=== PATIENT | female | born 1965 | race Caucasian/White ===

== ENCOUNTER 2017-09-21 12:09 | Emergency (ER) | payer OTHER ==
[2017-09-21 12:09] VITALS: BMI 23.8
[2017-09-21 12:16] VITALS: TEMP 97.9
--- NOTE | 2017-09-21 12:57 | ED PDOC ---
Arrival/HPI <Nicolás Correia - Last Filed: 09/21/17 15:41> - General Historian: Patient - History of Present Illness Time/Duration: 24 hours Symptom Onset: Sudden Symptom Course: Unchanged Quality: Pressure <Troy Zambrano - Last Filed: 09/21/17 19:40> - General Chief Complaint: Chest Pain Time Seen by Provider: 09/21/17 12:17 - History of Present Illness Narrative History of Present Illness (Text): Patient is a 51 year old female with a past medical history of hyperlipidemia who presents to the emergency room for evaluation and treatment of chest pressure which began yesterday evening with no specific provoking event. Pain originates and is localized to the sternal region. No associated SOB, diaphoresis, and palpitations. Admits to associated headache. Also admits to experiencing dizziness and left sided facial numbness during breakfast this morning. Both symptoms resolved within minutes of onset without any acute intervention. Denies fever, chills, SOB, abdominal pain, nausea, vomiting, diarrhea, constipation, and urinary symptoms. (Troy Zambrano) Past Medical History - Provider Review Nursing Documentation Reviewed: Yes - Travel History Have you recently traveled outside [place] w/in the past 3 mons?: No - Infectious Disease Hx of Infectious Diseases: None - Tetanus Immunization Tetanus Immunization: Unknown - Reproductive Menopause: Yes - Past Medical History Past Medical History: No Previous - Cardiac Hx Hypertension: Yes - Pulmonary Hx Respiratory Disorders: No - Neurological Hx Neurological Disorder: No - HEENT Hx HEENT Disorder: No - Renal Hx Renal Disorder: No - Endocrine/Metabolic Hx Endocrine Disorders: No - Hematological/Oncological Hx Blood Disorders: No - Musculoskeletal/Rheumatological Hx Musculoskeletal Disorders: No - Gastrointestinal Hx Hemorrhoids: Yes - Genitourinary/Gynecological Hx Genitourinary Disorders: No - Psychiatric Hx Depression: No Hx Emotional Abuse: No Hx Physical Abuse: No Hx Substance Use: No - Surgical History Hx Section: Yes Hx Hysterectomy: Yes - Anesthesia Hx Anesthesia: Yes Hx Anesthesia Reactions: No Hx Malignant Hyperthermia: No - Suicidal Assessment Feels Threatened In Home Enviroment: No <Troy Zambrano - Last Filed: 09/21/17 19:40> Family/Social History - Physician Review Nursing Documentation Reviewed: Yes Family/Social History: Unknown Family HX Smoking Status: Never Smoked Hx Alcohol Use: No Hx Substance Use: No Hx Substance Use Treatment: No <Troy Zambrano - Last Filed: 09/21/17 19:40> Allergies/Home Meds <Nicolás Correia - Last Filed: 09/21/17 15:41> <Troy Zambrano - Last Filed: 09/21/17 19:40> Allergies/Adverse Reactions: Allergies No Known Allergies Allergy (Verified 09/21/17 12:16) Review of Systems - Review of Systems Constitutional: Normal Eyes: Normal ENT: Normal Respiratory: Normal Cardiovascular: Chest Pain Gastrointestinal: Normal Genitourinary Female: Normal Musculoskeletal: Normal Skin: Normal Neurological: Dizziness Endocrine: Normal Hemo/Lymphatic: Normal Psychiatric: Normal <Troy Zambrano - Last Filed: 09/21/17 19:40> Physical Exam Vital Signs Reviewed: Yes <Nicolás Correia - Last Filed: 09/21/17 15:41> Temperature: Afebrile Blood Pressure: Normal Pulse: Regular Respiratory Rate: Normal Appearance: Positive for: Well-Appearing, Non-Toxic, Comfortable Pain Distress: None Mental Status: Positive for: Alert and Oriented X 3 - Systems Exam Head: Present: Atraumatic, Normocephalic Pupils: Present: PERRL Extroacular Muscles: Present: EOMI Conjunctiva: Present: Normal Mouth: Present: Moist Mucous Membranes Neck: Present: Normal Range of Motion Respiratory/Chest: Present: Clear to Auscultation, Good Air Exchange. No: Respiratory Distress, Accessory Muscle Use Cardiovascular: Present: Regular Rate and Rhythm, Normal S1, S2, Other (pain reproducible on palpation in the sternal region ). No: Murmurs Abdomen: No: Tenderness, Distention, Peritoneal Signs Back: Present: Normal Inspection Upper Extremity: Present: Normal Inspection. No: Cyanosis, Edema Lower Extremity: Present: Normal Inspection. No: Edema Neurological: Present: GCS=15, CN II-XII Intact, Speech Normal Skin: Present: Warm, Dry, Normal Color. No: Rashes Psychiatric: Present: Alert, Oriented x 3, Normal Insight, Normal Concentration <Troy Zambrano - Last Filed: 09/21/17 19:40> Vital Signs Temp Pulse Pulse Resp BP BP Pulse Ox 09/21/17 18:09 70 16 114/58 L 99 09/21/17 14:30 71 16 108/66 99 09/21/17 12:26 80 119/80 09/21/17 12:14 97.9 F 80 18 119/81 99 Medical Decision Making - RAD Interpretation Marketing Director: Radiologist <Nicolás Correia - Last Filed: 09/21/17 15:41> - EKG Interpretation Interpreted by ED Physician: Yes Type: 12 lead EKG <Troy Zambrano - Last Filed: 09/21/17 19:40> ED Course and Treatment: 09/21/17 In agreement with resident note, which includes further HPI details. Patient was seen and evaluated with resident, came up with plan and treatment together. (Nicolás Correia) Assessment and Plan: Patient is a 51 year old female with a past medical history of hyperlipidemia who presents to the emergency room for evaluation and treatment of chest pressure . Chest Pressure - EKG - CBC, CMP, Mag, Phos - Troponin - Chest X-Ray Dizziness, Facial Numbness - CT of head no contrast- no acute findings - dizziness significantly improved s/p mecliizine 09/21/17 18:16 - abdominal ultrasound- The liver is echogenic. This can be seen in the setting of fatty infiltration, hepatitis, cirrhosis, as well as other possibilities, please 09/21/17 19:27 - second troponin negative - ok for discharge to home (Troy Zambrano) - Lab Interpretations Lab Results: 09/21/17 13:00 09/21/17 13:00 Lab Results 09/21/17 17:52: Troponin I < 0.01 09/21/17 13:00: Sodium 140, Potassium 4.3, Chloride 105, Carbon Dioxide 26, Anion Gap 14, BUN 13, Creatinine 0.7, Est GFR ( Amer) > 60, Est GFR (Non- Af Amer) > 60, Random Glucose 103, Calcium 9.0, Phosphorus 3.3, Magnesium 1.9, Total Bilirubin 0.7, AST 115 H, ALT 120 H, Alkaline Phosphatase 223 H, Troponin I < 0.01, Total Protein 7.7, Albumin 4.2, Globulin 3.5, Albumin/Globulin Ratio 1.2, Lipase 86 09/21/17 13:00: WBC 7.2, RBC 4.43, Hgb 13.1, Hct 38.0, MCV 85.8, MCH 29.6, MCHC 34.5, RDW 12.8, Plt Count 283, MPV 9.3, Gran % 62.4, Lymph % (Auto) 31.6, Beaver % (Auto) 3.8, Eos % (Auto) 2.1, Baso % (Auto) 0.1, Gran # 4.46, Lymph # (Auto) 2.3, Beaver # (Auto) 0.3, Eos # (Auto) 0.2, Baso # (Auto) 0.01 - RAD Interpretation Narrative RAD Interpretations (Text): PROCEDURE: CT HEAD WITHOUT CONTRAST. HISTORY: Headache, dizziness, left facial numbness COMPARISON: None available. TECHNIQUE: Axial computed tomography images were obtained through the head/brain without intravenous contrast. Radiation dose: Total exam DLP = 715.53 mGy-cm. This CT exam was performed using one or more of the following dose reduction techniques: Automated exposure control, adjustment of the mA and/or kV according to patient size, and/or use of iterative reconstruction technique. FINDINGS: HEMORRHAGE: No intracranial hemorrhage. BRAIN: No mass effect or edema. No atrophy or chronic microvascular ischemic changes. VENTRICLES: Unremarkable. No hydrocephalus. CALVARIUM: Unremarkable. PARANASAL SINUSES: Mild mucoperiosteal inflammatory changes seen within the sphenoid sinus left chamber greater than right. Minimal mucosal thickening within the ethmoid air complex. MASTOID AIR CELLS: Unremarkable as visualized. No inflammatory changes. OTHER FINDINGS: None. IMPRESSION: No acute intracranial hemorrhage. Minor mucosal thickening seen within the sphenoid and ethmoid air complexes. ABDOMEN COMPLETE Exam Date: 09/21/17 This imaging exam was performed at [facility] EXAM: US Abdomen Complete CLINICAL HISTORY: 51 years old, female; Abnormal findings; Abnormal lab test; Elevated liver enzymes; Additional info: Elevated lfts, chest pressure TECHNIQUE: Real-time ultrasound of the abdomen (complete) with image documentation. COMPARISON: No relevant prior studies available. FINDINGS: Liver: The liver is echogenic. This can be seen in the setting of fatty infiltration, hepatitis, cirrhosis, as well as other possibilities, please correlate clinically. Gallbladder: The patient is status post cholecystectomy. Common bile duct: The common bile duct measures 3 mm. Pancreas: The pancreas is not adequately evaluated due to obscuring bowel gas. Kidneys: Right kidney 10.0 cm. Left kidney 9.8 cm. No stones. No hydronephrosis. Spleen: Unremarkable. No splenomegaly. IMPRESSION: The liver is echogenic. This can be seen in the setting of fatty infiltration, hepatitis, cirrhosis, as well as other possibilities, please correlate clinically. 09/21/17 18:11 (Troy Zambrano) Radiology Orders: 09/21/17 12:28 CHEST PORTABLE [RAD] Stat 09/21/17 12:49 HEAD W/O CONTRAST [CT] Stat 09/21/17 15:00 ABDOMEN COMPLETE [US] Stat - EKG Interpretation EKG Interpretation (Text): EKG NSR HR 80bpm, QTc 424ms (Troy Zambrano) - Medication Orders Current Medication Orders: Discontinued Medications Meclizine HCl (Antivert) 25 mg PO STAT STA Stop: 09/21/17 14:23 Last Admin: 09/21/17 14:41 Dose: 25 mg - PA / TRIAL EXAMINER / Resident Statement MD/DO has reviewed & agrees with the documentation as recorded. MD/DO has examined the patient and agrees with the treatment plan. - Scribe Statement The provider has reviewed the documentation as recorded by the Scribe <Nicolás Correia - Last Filed: 09/21/17 15:41> <Troy Zambrano - Last Filed: 09/21/17 19:40> - Scribe Statement Lilian Jo Provider Scribe Attestation: All medical record entries made by the Scribe were at my direction and personally dictated by me. I have reviewed the chart and agree that the record accurately reflects my personal performance of the history, physical exam, medical decision making, and the department course for this patient. I have also personally directed, reviewed, and agree with the discharge instructions and disposition. (Nicolás Correia) Disposition/Present on Arrival <Nicolás Correia - Last Filed: 09/21/17 15:41> - Present on Arrival Any Indicators Present on Arrival: No History of DVT/PE: No History of Uncontrolled Diabetes: No Urinary Catheter: No History of Decub. Ulcer: No History Surgical Site Infection Following: None - Disposition Have Diagnosis and Disposition been Completed?: Yes Disposition Time: 19:27 Patient Plan: Discharge <Troy Zambrano - Last Filed: 09/21/17 19:40> - Disposition Diagnosis: Atypical chest pain Disposition: HOME/ ROUTINE Condition: GOOD Discharge Instructions (ExitCare): Chest Pain (ED) Additional Instructions: HILARY COREY, thank you for letting us take care of you today. Your provider was Nciolás Correia DO and you were treated for PRESSURE IN CHEST. The emergency medical care you received today was directed at your acute symptoms. If you were prescribed any medication, please fill it and take as directed. It may take several days for your symptoms to resolve. Return to the Emergency Department if your symptoms worsen, do not improve, or if you have any other problems. Please contact your doctor or call one of the physicians/clinics you have been referred to that are listed on the Patient Visit Information form that is included in your discharge packet. Bring any paperwork you were given at discharge with you along with any medications you are taking to your follow up visit. Our treatment cannot replace ongoing medical care by a primary care provider outside of the emergency department. Thank you for allowing the [facility] team to be part of your care today. If you had an X-Ray or CT scan: A Radiologist will review the ED reading if any change in treatment is needed we will contact you. If you had a blood, urine, or wound culture: It will take several days for the results, if any change in treatment is needed we will contact you. If you had an STI test: It will take 48 hours for the results. Please call after 1 week if you have not heard back. Prescriptions: Meclizine [Antivert] 12.5 mg PO TID PRN 5 Days tab PRN Reason: Dizziness Forms: [employer] (Japanese)
[2017-09-21 13:20] LABS: BASO # 0.01 K/mm3 (0.0-2.0); BASO % 0.1 % (0.0-3.0); EOS # 0.2 (0.0-0.7); EOS % 2.1 % (1.5-5.0); GRAN # 4.46 (1.4-6.5); GRAN % 62.4 % (50.0-68.0); HEMOGLOBIN 13.1 g/dL (12.0-16.0); LYMPH # 2.3 (1.2-3.4); LYMPH % 31.6 % (22.0-35.0); MEAN CELL VOLUME 85.8 fl (80.0-105.0); MEAN CORPUSCULAR HEMOGLOBIN 29.6 pg (25.0-35.0); MEAN CORPUSCULAR HGB CONC 34.5 g/dl (31.0-37.0); MEAN PLATELET VOLUME 9.3 fl (7.0-11.0); MONO # 0.3 (0.1-0.6); MONO % 3.8 % (1.0-6.0); RBC 4.43 10^6/uL (3.5-6.1); RED CELL DISTRIBUTION WIDTH 12.8 % (11.5-14.5); WHITE BLOOD COUNT 7.2 10^3/ul (4.5-11.0)
[2017-09-21 13:29] LABS: ALB/GLOB RATIO 1.2 (1.1-1.8); ALBUMIN 4.2 g/dL (3.0-4.8); ALT/SGPT 120 U/L (7-56); AST/SGOT 115 U/L (14-36); BLOOD UREA NITROGEN 13 mg/dL (7-21); GFR AFRICAN-AMERICAN > 60; GFR NON-AFRICAN AMERICAN > 60; LIPASE 86 U/L (23-300)
[2017-09-21 13:40] LABS: TROPONIN I < 0.01 ng/mL
--- NOTE | 2017-09-21 14:00 | CT ---
PROCEDURE: CT HEAD WITHOUT CONTRAST. HISTORY: Headache, dizziness, left facial numbness COMPARISON: None available. TECHNIQUE: Axial computed tomography images were obtained through the head/brain without intravenous contrast. Radiation dose: Total exam DLP = 715.53 mGy-cm. This CT exam was performed using one or more of the following dose reduction techniques: Automated exposure control, adjustment of the mA and/or kV according to patient size, and/or use of iterative reconstruction technique. FINDINGS: HEMORRHAGE: No intracranial hemorrhage. BRAIN: No mass effect or edema. No atrophy or chronic microvascular ischemic changes. VENTRICLES: Unremarkable. No hydrocephalus. CALVARIUM: Unremarkable. PARANASAL SINUSES: Mild mucoperiosteal inflammatory changes seen within the sphenoid sinus left chamber greater than right. Minimal mucosal thickening within the ethmoid air complex. MASTOID AIR CELLS: Unremarkable as visualized. No inflammatory changes. OTHER FINDINGS: None. IMPRESSION: No acute intracranial hemorrhage. Minor mucosal thickening seen within the sphenoid and ethmoid air complexes.
--- NOTE | 2017-09-21 15:50 | RAD ---
HISTORY: chest pressure COMPARISON: Comparison chest 11/06/2012 FINDINGS: LUNGS: No active pulmonary disease. PLEURA: No significant pleural effusion identified, no pneumothorax apparent. CARDIOVASCULAR: Normal. OSSEOUS STRUCTURES: No significant abnormalities. VISUALIZED UPPER ABDOMEN: Normal. OTHER FINDINGS: None. IMPRESSION: No active disease.
--- NOTE | 2017-09-21 17:36 | US ---
EXAM: US Abdomen Complete CLINICAL HISTORY: 51 years old, female; Abnormal findings; Abnormal lab test; Elevated liver enzymes; Additional info: Elevated lfts, chest pressure TECHNIQUE: Real-time ultrasound of the abdomen (complete) with image documentation. COMPARISON: No relevant prior studies available. FINDINGS: Liver: The liver is echogenic. This can be seen in the setting of fatty infiltration, hepatitis, cirrhosis, as well as other possibilities, please correlate clinically. Gallbladder: The patient is status post cholecystectomy. Common bile duct: The common bile duct measures 3 mm. Pancreas: The pancreas is not adequately evaluated due to obscuring bowel gas. Kidneys: Right kidney 10.0 cm. Left kidney 9.8 cm. No stones. No hydronephrosis. Spleen: Unremarkable. No splenomegaly. IMPRESSION: The liver is echogenic. This can be seen in the setting of fatty infiltration, hepatitis, cirrhosis, as well as other possibilities, please correlate clinically.
[2017-09-21 18:09] VITALS: PULSE 70; RESP 16
[2017-09-21 19:42] VITALS: BP 114/71; O2SAT 98
--- NOTE | 2017-09-22 08:07 | CARD ---
APPROVED REPORT EKG Measurement Heart [id number] [place] [id number] <Conclusion> Normal sinus rhythm Normal ECG
== END 2017-09-21 19:41 | disposition home or self-care (01) ==
LOC: ED 12:09
DX: R07.89 Other chest pain (principal); E78.5 Hyperlipidemia, unspecified; I10 Essential (primary) hypertension

== ENCOUNTER 2017-09-28 09:10 | Emergency (ER) | payer OTHER ==
[2017-09-28 09:10] VITALS: BMI 23.8
[2017-09-28 09:49] VITALS: PULSE 76; TEMP 98.9
--- NOTE | 2017-09-28 10:09 | ED PDOC ---
Arrival/HPI - General Chief Complaint: Female Genitourinary Time Seen by Provider: 09/28/17 09:52 Historian: Patient - History of Present Illness Narrative History of Present Illness (Text): 09/28/17 10:06 51yo female with no pmhx who present with 4days history of dysuria and hematuria this morning. States she took OTC Uristat without relieve. Denies abdominal pain, back pain, fever, chills, nausea, vomiting, any other complaint. Past Medical History - Provider Review Nursing Documentation Reviewed: Yes - Infectious Disease Hx of Infectious Diseases: None - Tetanus Immunization Tetanus Immunization: Unknown - Reproductive Menopause: No - Past Medical History Past Medical History: No Previous - Cardiac Hx Cardiac Disorders: No Hx Hypertension: Yes - Pulmonary Hx Respiratory Disorders: No - Neurological Hx Neurological Disorder: No - HEENT Hx HEENT Disorder: No - Renal Hx Renal Disorder: No - Endocrine/Metabolic Hx Endocrine Disorders: No - Hematological/Oncological Hx Blood Disorders: No - Musculoskeletal/Rheumatological Hx Musculoskeletal Disorders: No - Gastrointestinal Hx Hemorrhoids: Yes - Genitourinary/Gynecological Hx Genitourinary Disorders: No - Psychiatric Hx Depression: No Hx Emotional Abuse: No Hx Physical Abuse: No Hx Substance Use: No - Surgical History Hx Section: Yes Hx Hysterectomy: Yes - Anesthesia Hx Anesthesia: Yes Hx Anesthesia Reactions: No Hx Malignant Hyperthermia: No - Suicidal Assessment Feels Threatened In Home Enviroment: No Family/Social History - Physician Review Nursing Documentation Reviewed: Yes Family/Social History: Unknown Family HX Smoking Status: Never Smoked Hx Alcohol Use: No Hx Substance Use: No Hx Substance Use Treatment: No Allergies/Home Meds Allergies/Adverse Reactions: Allergies No Known Allergies Allergy (Verified 09/21/17 12:16) Home Medications: Home Meds Medication Instructions Recorded Confirmed Phenazopyridine/Urine Uti Strp 09/28/17 [Uristat Relief Sunny] Review of Systems - Physician Review All systems were reviewed & negative as marked: Yes - Review of Systems Constitutional: Normal Eyes: Normal ENT: Normal Respiratory: Normal Cardiovascular: Normal Gastrointestinal: Normal Genitourinary Female: Dysuria, Hematuria. absent: Frequency Musculoskeletal: Normal Skin: Normal Neurological: Normal Endocrine: Normal Hemo/Lymphatic: Normal Psychiatric: Normal Physical Exam Vital Signs Reviewed: Yes Vital Signs Temp Pulse Resp BP Pulse Ox 09/28/17 09:45 98.9 F 76 16 124/79 97 Temperature: Afebrile Blood Pressure: Normal Pulse: Regular Respiratory Rate: Normal Appearance: Positive for: Well-Appearing, Non-Toxic, Comfortable Pain Distress: None Mental Status: Positive for: Alert and Oriented X 3 - Systems Exam Head: Present: Atraumatic, Normocephalic Pupils: Present: PERRL Extroacular Muscles: Present: EOMI Conjunctiva: Present: Normal Mouth: Present: Moist Mucous Membranes Neck: Present: Normal Range of Motion Respiratory/Chest: Present: Clear to Auscultation, Good Air Exchange. No: Respiratory Distress, Accessory Muscle Use Cardiovascular: Present: Regular Rate and Rhythm, Normal S1, S2. No: Murmurs Abdomen: Present: Other (Soft). No: Tenderness, Distention, Normal Bowel Sounds , Peritoneal Signs, Rebound, Guarding, McBurney's Point Tender, Rovsing's Sign Present Back: Present: Normal Inspection. No: CVA Tenderness Upper Extremity: Present: Normal Inspection. No: Cyanosis, Edema Lower Extremity: Present: Normal Inspection. No: Edema Neurological: Present: GCS=15, CN II-XII Intact, Speech Normal Skin: Present: Warm, Dry, Normal Color. No: Rashes Psychiatric: Present: Alert, Oriented x 3, Normal Insight, Normal Concentration Medical Decision Making - Lab Interpretations Lab Results: Lab Results 09/28/17 10:40: Urine Color Yellow, Urine Appearance Clear, Urine pH 6.0, Ur Specific [place] 1.010, Urine Protein Negative, Urine Glucose (UA) Negative, Urine Ketones Negative, Urine Blood Negative, Urine Nitrate Positive H, Urine Bilirubin Negative, Urine Urobilinogen 1.0 H, Ur Leukocyte Esterase Negative, Urine RBC Pending, Urine WBC Pending - Medication Orders Current Medication Orders: Discontinued Medications Cephalexin Monohydrate (Keflex) 500 mg PO STAT STA PRN Reason: Protocol Stop: 09/28/17 11:01 Phenazopyridine HCl (Pyridium) 200 mg PO STAT STA Stop: 09/28/17 11:01 Disposition/Present on Arrival - Present on Arrival Any Indicators Present on Arrival: No History of DVT/PE: No History of Uncontrolled Diabetes: No Urinary Catheter: No History of Decub. Ulcer: No History Surgical Site Infection Following: None - Disposition Have Diagnosis and Disposition been Completed?: Yes Diagnosis: UTI (urinary tract infection) Disposition: HOME/ ROUTINE Disposition Time: 11:05 Patient Plan: Discharge Condition: STABLE Discharge Instructions (ExitCare): Urinary Tract Infections in Adults Additional Instructions: Follow up with your Doctor Drink plenty of fluid and take Cranberry supplement Return to ED for any new or worsening symptoms Prescriptions: Cephalexin [Keflex] 500 mg PO TID #21 capsule Phenazopyridine HCl [Pyridium] 200 mg PO TID #6 tablet Forms: [employer] (Macedonian)
[2017-09-28 10:53] LABS: URINE BILIRUBIN NEGATIVE (NEGATIVE); URINE BLOOD NEGATIVE (NEGATIVE); URINE GLUCOSE (UA) NEGATIVE (NEGATIVE); URINE LEUKOCYTE ESTERASE NEGATIVE Leu/uL (NEGATIVE); URINE PROTEIN NEGATIVE mg/dL (<30 mg/dL)
[2017-09-28 10:54] LABS: URINE APPEARANCE CLEAR (CLEAR); URINE COLOR YELLOW (YELLOW)
[2017-09-28 11:09] LABS: URINE BACTERIA FEW (NEG); URINE RBC 0 - 2 /hpf (0-2); URINE WBC 0 - 2 /hpf (0-6)
[2017-09-28 11:15] VITALS: BP 124/78; RESP 18; O2SAT 98
== END 2017-09-28 11:14 | disposition home or self-care (01) ==
LOC: ED 09:10
DX: N39.0 Urinary tract infection, site not specified (principal)